=== PATIENT | male | born 1995 | race Caucasian/White ===

== ENCOUNTER 2021-03-18 16:51 | Emergency (ER) | payer MEDICAID, SELFPAY ==
[2021-03-18 16:56] VITALS: BP 100/84; PULSE 89; RESP 18; TEMP 36.9; O2SAT 98
--- NOTE | 2021-03-18 17:30 | DI.RAD_ITS ---
Exam(s) XR KNEE LT 3V AP,LAT,PRASANTH EXAM: XR KNEE LT 3V AP,LAT,PRASANTH CLINICAL HISTORY: pain s/p tire hitting his knee. TECHNIQUE: 2D digital imaging was performed. COMPARISON: CR CHEST 2 VIEWS PA,LAT from 07/10/2014 FINDINGS: BONES: No acute fracture is present. No bony destructive lesion is seen. JOINTS: The knee is normally aligned. No joint effusion is seen. SOFT TISSUE: Normal. IMPRESSION: Normal radiographs of the left knee. DATA REPOSITORY: RADIATION DOSE DELIVERED:
--- NOTE | 2021-03-18 17:36 | ED.GENADUL_ITS ---
Discharge Plan Disposition Patient Disposition: HOME Condition: Stable Discharge Details Chief Complaint: Orthopedic Clinical Impression: Contusion of left knee Primary Care Provider: Deangelo Shukla ED Provider: Kemal Canas Home Meds and New Rx's Prescriptions: No Action No Known Home Meds RF: 0 Discharge Instructions Instructions: Contusion in Adults (ED) Additional Instructions: your xray did not show any broken bones if pain continues in a week see your primary care provider if you have severe worsening pain or feel more ill return to the emergency department Medical Decision Making 25 yo male comes in with left knee pain. 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 Has no headache, neck pain, chest pain, abdomen pain. He has pain over the anterior knee without visible deformity, pain with palpation to the patella. HE does have full range of motion of the knee with intact distal sensation and pulses. Suspect contusion but will xray to evaluate for fracture xray unremarkable and his exam is unchanged, suspect contusion, will place in hinged knee brace and provided crutches to use as needed. He can bear weight and do not feel ct indicated at this time Differential Diagnosis Differential Diagnosis: strain, contusion, fracture Imaging Data Radiologic Study: Attestation: I personally reviewed and interpreted this imaging study as follows: Imaging: X-Ray Radiologist's impression: no acute findings HPI General Mode of arrival: wheelchair . Date/Time Provider Initiated Documentation: 03/18/21 17:29 . Limitations to Documentation: no limitations . Information obtained by: patient . History of Present Illness 25 year old M presents to the emergency department with the chief complaint of left knee pain, described as moderate, Quality is described as aching, and is localized to the left and lower extremity. Patient reports no radiation. Patient started experiencing this hour(s) (6) and it has been constant. Rest improves symptom(s), Movement worsens symptoms . Patient notes no other symptoms.. Patient did receive the following treatments prior to arrival, none Related Data Home Medications Medication Instructions Recorded Confirmed Unknown [No Known Home Meds] 03/18/21 03/18/21 Allergies Allergy/AdvReac Type Severity Reaction Status Date / Time Iodinated Contrast Media Allergy Severe Nausea Unverified 03/18/21 16:59 General Stated Complaint: Orthopedic JÚNIOR: 4 Review of Systems All systems reviewed & are unremarkable except as noted in HPI and below Constitutional Constitutional: Denies chills, Denies fever(s) and Denies weakness Cardiovascular Cardiovascular: Denies chest pain and Denies dyspnea Respiratory Respiratory: Denies cough and Denies dyspnea Gastrointestinal Gastrointestinal: Denies abdominal pain, Denies nausea and Denies vomiting Neurologic Neurologic: Denies weakness PFSH Social History Smoking/Tobacco Use Status: Never Smoking risk assessment performed?: Yes Alcohol Intake: current Alcohol Intake frequency: holidays/special occasions only Drug use: Never Substance use type: does not use Do you feel safe at home: Yes Do you feel safe in your relationship?: Yes Exam Const General: no acute distress Orientation: alert HENMT Head: normal to inspection Ears: external ears normal General nose exam: external nose normal Mouth: moist mucous membranes Eyes General: appearance normal, both eyes and all related structures Neck Neck: normal visual inspection Resp Effort & Inspection: normal respiratory effort and able to speak in complete sentences Cardio Rate: regular rate Skin General skin exam: no rashes or lesions noted Neuro General: patient alert and patient oriented x3 Extrem General: full ROM and capillary refill normal Psych Mental Status: mental status grossly normal Course Vital Signs Vital signs: Vital Signs Temperature 36.9 C 03/18/21 16:56 Pulse 89 03/18/21 16:56 Respiratory Rate 18 03/18/21 16:56 Blood Pressure 100/84 03/18/21 16:56 Pulse Oximetry 98 03/18/21 16:56 Temperature 36.9 C 03/18/21 16:56 Temperature Source Temporal Artery Scan 03/18/21 16:56 Pulse 89 03/18/21 16:56 Respiratory Rate 18 03/18/21 16:56 Respiratory Effort Non-Labored 03/18/21 17:01 Blood Pressure 100/84 03/18/21 16:56 Blood Pressure Position Sitting 03/18/21 16:56 Pulse Oximetry 98 03/18/21 16:56 Pain Level 10 03/18/21 16:56
[2021-03-18] MEDS: Acetaminophen 500 MG TAB 1000 MG PO (17:42)
--- NOTE | 2021-03-18 18:22 | DI.VRAD_ITS ---
PROCEDURE INFORMATION: Exam: XR Left Knee Exam date and time: 03/18/2021 5:35 PM Age: 25 years old Clinical indication: Work-related injury / trauma left knee: Hyperextension; Sprain or strain left knee; Hit left knee by rolling tire on knee TECHNIQUE: Imaging protocol: XR Left knee. Views: 3 views. COMPARISON: No relevant prior studies available. FINDINGS: Bones/joints: No acute fracture. No dislocation. No focal osseous lesion. No significant degenerative change. No joint effusion by plain film. Soft tissues: No soft tissue radiopaque foreign body. IMPRESSION: No acute findings by plain film. Dictated and Authenticated by: Zac Aguilar MD. Ordering:KYAW Sommer MD
== END 2021-03-18 19:10 | disposition home or self-care (01) ==
PROVIDERS: Emergency Provider Emergency Medicine; PCP General Practice
DX: S80.02XA Contusion of left knee, initial encounter (principal); W22.8XXA Striking against or struck by other objects, initial encounter; Y99.0 Civilian activity done for income or pay
CPT/HCPCS: 29505; 73562; 99283